=== PATIENT | female | born 1990 | race Caucasian/White ===

== ENCOUNTER → 2020-01-12 | Emergency (ER) | payer SELFPAY ==
[~2020-01-12] VITALS: Ht 175.3 cm; Wt 65.8 kg
[~2020-01-12] MED LIST: ACETAMINOPHEN 325 MG TAB ONE; ONDANSETRON HCL 4 MG ORAL DISINTEGRATING TAB ONE
--- NOTE | 2020-01-12 18:53 | Emergency Department Note ---
History of Present Illnes History of Present Illness Chief Complaint: General Medicine Complaints History of Present Illness This is a 29 year old female arrived to the ED with complaints of right lower extremity pain, patient states pain is present for several months. * Patient in via EMS with complaints of right lower extremity pain that started to get really bad yesterday. Patient had an unknown surgery this past November. Patient states that her legs were very swollen and she was unable to use them. States that her kidneys were draining into her legs and caused the swelling so they had to make the cuts in her legs to "release the pressure". Patient also states that she ended up with foot drop on the right side after the hospitalization. Patient feels like her leg is swollen again. Patient is anxious and angry in triage and very tearful. Historian: Patient Arrival Mode: Car Past Medical/Family History Physician Review I have reviewed the patient's past medical and family history. Any updates have been documented here. 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) Other Any Pre-Existing Lines (PICC,: No Review of Systems Review of Systems Constitutional: Reports no symptoms EENTM: Reports no symptoms Cardiovascular: Reports no symptoms Respiratory: Reports no symptoms Gastrointestinal: Reports no symptoms Genitourinary: Reports no symptoms Musculoskeletal: Reports as per HPI Integumentary: Reports no symptoms Neurological: Reports no symptoms Psychological: Reports no symptoms Endocrine: Reports no symptoms Hematological/Lymphatic: Reports no symptoms Physical Exam Related Data Allergies: Coded Allergies: Penicillins (Verified Allergy, Severe, mouth swelling, 01/12/20) aspirin (Verified Allergy, Severe, mouth swelling, 01/12/20) Triage Vital Signs Vital Signs Date Time Temp Pulse Resp B/P (MAP) Pulse Ox O2 Delivery O2 Flow Rate FiO2 01/12/20 17:09 97.4 86 16 120/82 100 Room Air Vital signs reviewed: Yes Physical Exam CONSTITUTIONAL Constitutional: Present well-developed, Present well-nourished HENT HENT: Present normocephalic, Present atraumatic, Present oropharynx clear/moist, Present nose normal HENT L/R: Present left ext ear normal, Present right ext ear normal EYES Eyes: Reports PERRL, Reports conjunctivae normal NECK Neck: Present ROM normal PULMONARY Pulmonary: Present effort normal, Present breath sounds normal CARDIOVASCULAR Cardiovascular: Present regular rhythm, Present heart sounds normal, Present capillary refill normal, Present normal rate GASTROINTESTINAL Abdominal: Present soft, Present nontender, Present bowel sounds normal GENITOURINARY Genitourinary: Present exam deferred SKIN Skin: Present warm, Present dry MUSCULOSKELETAL Musculoskeletal: Present ROM normal NEUROLOGICAL Neurological: Present alert, Present oriented x 3, Present no gross motor or sensory deficits PSYCHOLOGICAL Psychological: Present mood/affect normal, Present judgement normal Assessment & Plan Medical Decision Making MDM 29-year-old female arrived to the ED with complaints of bilateral leg pain that is chronic in nature. Extremity appears normal soft compartments and normal pulses. Patient requesting morphine and Dilaudid for pain. Patient given outpatient pain management referral. The patient is manifesting multiple drug seeking attributes. Prior medical records, if available, were reviewed. Discussed with the patient that opioid pain medication will not be given during the ED visit. Alternative analgesia is offered and REFUSED/ACCEPTED. Assessment & Plan Final Impression: (1) Chronic pain Depart Disposition: HOME, SELF-CARE Last Vital Signs Date Time Temp Pulse Resp B/P (MAP) Pulse Ox O2 Delivery O2 Flow Rate FiO2 01/12/20 17:09 97.4 86 16 120/82 100 Room Air Medications in the ED Acetaminophen 650 mg STK-MED ONCE .ROUTE ; Start 01/12/20 at 18:58; Stop 01/12/20 at 18:51; Status DC Ondansetron HCl 4 mg STK-MED ONCE .ROUTE ; Start 01/12/20 at 18:58; Stop 01/12/20 at 18:51; Status DC AMINAH CRAWFORD, Jan 12, 2020 18:53
== END | disposition home or self-care (01) ==
LOC: ER 19:00
DX: M79.605 Pain in left leg (principal); M79.604 Pain in right leg; G89.29 Other chronic pain; G62.9 Polyneuropathy, unspecified; M21.371 Foot drop, right foot; F17.210 Nicotine dependence, cigarettes, uncomplicated
CPT/HCPCS: 99283; Q0162